=== PATIENT | female | born 1975 | race Asian ===

== ENCOUNTER 2017-12-01 16:33 | Emergency (ER) | payer OTHER ==
[~2017-12-01] VITALS: Ht 157.5 cm; Wt 68.0 kg
[2017-12-01 16:35] VITALS: TEMP 98.3
[2017-12-01 17:22] LABS: PLATELET COUNT 218 K/uL (152-353)
[2017-12-01 17:33] LABS: POTASSIUM 3.8 mmol/L (3.6-5.2)
[2017-12-01 17:35] VITALS: BP 110/60
== END 2017-12-01 17:55 | disposition home or self-care (01) ==
LOC: ED 16:33
DX: J06.9 Acute upper respiratory infection, unspecified (principal); R06.00 Dyspnea, unspecified
CPT/HCPCS: 36415; 80053; 85027; 94664; 96374; 99284; J2930

== ENCOUNTER 2021-07-26 23:09 | Emergency (ER) | payer OTHER ==
[~2021-07-26] VITALS: Ht 157.5 cm; Wt 72.6 kg
[2021-07-27 00:37] LABS: POTASSIUM 3.3 mmol/L (3.6-5.2)
[2021-07-27 00:43] LABS: PLATELET COUNT 250 K/uL (152-353)
[2021-07-27 01:40] VITALS: BP 116/66; TEMP 97.5
== END 2021-07-27 01:44 | disposition home or self-care (01) ==
LOC: ED 23:09
PROVIDERS: Emergency Medicine Emergency Medical Services
DX: M62.838 Other muscle spasm (principal); E87.6 Hypokalemia
CPT/HCPCS: 36415; 80053; 85027; 96360; 96375; 99284; J1885

== ENCOUNTER 2022-10-11 12:09 | Emergency (ER) | payer OTHER ==
[~2022-10-11] VITALS: Ht 157.5 cm; Wt 59.9 kg
[2022-10-11 12:13] VITALS: BP 136/74; TEMP 98.1
[2022-10-11 12:47] LABS: PLATELET COUNT 296 K/uL (152-353)
[2022-10-11 12:52] LABS: POTASSIUM 3.7 mmol/L (3.6-5.2)
== END 2022-10-11 13:18 | disposition home or self-care (01) ==
LOC: ED 12:09
PROVIDERS: Emergency Medicine
DX: N93.8 Other specified abnormal uterine and vaginal bleeding (principal); Z32.02 Encounter for pregnancy test, result negative
CPT/HCPCS: 36415; 80053; 80307; 81000; 81025; 85027; 85610; 85730; 99283